=== PATIENT | male | born 1990 | race Caucasian/White ===

== ENCOUNTER 2021-03-06 21:28 | Emergency (ER) | payer SELFPAY ==
[~2021-03-06] VITALS: Ht 190 cm; Wt 100.0 kg
[2021-03-06] MEDS ORDERED: FAMOTIDINE 20MG/2ML IV (PEPCID) IV STA (22:32)
[2021-03-06] MEDS ORDERED: LACTATED RINGERS 1,000 ML IV STA (22:32)
[2021-03-06 22:42] LABS: BASOPHILS % (AUTO) 0 % (0-10); EOSINOPHILS # (AUTO) 0.1 10^3/uL (0.0-0.3); EOSINOPHILS % (AUTO) 1 % (0-10); HEMATOCRIT 44 % (40-54); HEMOGLOBIN 15.3 g/dL (13.3-17.7); LYMPHOCYTES # (AUTO) 0.5 10^3/uL (1.0-4.0); LYMPHOCYTES % (AUTO) 5 % (12-44); MEAN CORPUSCULAR HEMOGLOBIN 30 pg (25-34); MEAN CORPUSCULAR HGB CONC 35 g/dL (32-36); MEAN CORPUSCULAR VOLUME 88 fL (80-99); MEAN PLATELET VOLUME 10.8 fL (9.0-12.2); MONOCYTES # (AUTO) 0.5 10^3/uL (0.0-1.0); MONOCYTES % (AUTO) 5 % (0-12); NEUTROPHILS # (AUTO) 8.1 10^3/uL (1.8-7.8); NEUTROPHILS % (AUTO) 89 % (42-75); PLATELET COUNT 223 10^3/uL (130-400); WHITE BLOOD COUNT 9.2 10^3/uL (4.3-11.0)
[2021-03-06] MEDS ORDERED: ONDANSETRON 4 MG/2 ML (SDV) Z0FRAN IVP ONE (22:45)
[2021-03-06 22:48] LABS: ALBUMIN 4.7 GM/DL (3.2-4.5)
[2021-03-06 22:49] LABS: CHLORIDE 107 MMOL/L (98-107); POTASSIUM 3.7 MMOL/L (3.6-5.0); SODIUM 138 MMOL/L (135-145)
[2021-03-06 22:50] LABS: CALCIUM 9.2 MG/DL (8.5-10.1)
[2021-03-06 22:51] LABS: GLUCOSE 94 MG/DL (70-105); TOTAL PROTEIN 7.5 GM/DL (6.4-8.2)
[2021-03-06 22:52] LABS: CARBON DIOXIDE 18 MMOL/L (21-32)
[2021-03-06 22:53] LABS: BILIRUBIN,TOTAL 1.4 MG/DL (0.1-1.0)
[2021-03-06 22:54] LABS: ALKALINE PHOSPHATASE 76 U/L (40-136)
[2021-03-06 22:55] LABS: CREATININE SERUM 0.87 MG/DL (0.60-1.30); GFR ESTIMATED > 60
[2021-03-06 22:56] LABS: BUN/CREATININE RATIO 20
[2021-03-06 22:57] LABS: ALANINE AMINOTRANSFERASE 37 U/L (0-55)
--- NOTE | 2021-03-06 23:05 | ED GI ---
General Chief Complaint: Abdominal/GI Problems Stated Complaint: VOMMITTING, DIARRHEA, STOMACH PAIN Nursing Triage Note: PT PRESENTS TO THE ED C/O TWO DAYS OF NVD. DENIES FEVER OR CHILLS. STOOLS HAVE BEEN LIQUID ALL DAY TODAY. VERBALIZES ABD. CRAMPS. Source of Information: Patient Exam Limitations: No Limitations History of Present Illness Date Seen by Provider: Mar 06, 2021 Time Seen by Provider: 22:45 Initial Comments Here with report of nausea, vomiting and diarrhea over the last couple days. Thinks he may have got overheated. Denies contact with COVID-19. Denies Covid vaccination. Try to drink a whole bunch of fluid quickly tonight and vomited that up. Overall he is feeling better currently. Denies blood in his vomit or stool. Timing/Duration: 1-2 Days, Intermittent, Other (Better now) Severity/Quality: Cramping Location: Generalized Abdomen Modifying Factors: Improves With Defecating; Worsens With Eating Associated Symptoms: No Back Pain, No Chest Pain; Nausea/Vomiting; No Weakness Allergies and Home Medications Allergies Coded Allergies: No Known Drug Allergies (Unverified , 03/06/21) Patient Home Medication List Home Medication List Reviewed: Yes Review of Systems Review of Systems Constitutional: No chills, No fever EENTM: No Nose Pain, No Throat Pain Respiratory: Denies Cough, Denies Shortness of Air Cardiovascular: No Symptoms Reported Gastrointestinal: See HPI Genitourinary: No Symptoms Reported Musculoskeletal: no symptoms reported All Other Systems Reviewed Negative Unless Noted: Yes Past Kwezlsg-Rteobc-Ubsyzo Hx Patient Social History Tobacco Use?: Yes Smoking Status: Current Everyday Smoker Substance use?: No Alcohol Use?: No Immunizations Up To Date Influenza Vaccine Up-to-Date: No; Not Current Past Medical History Surgeries: Yes Orthopedic Respiratory: No Cardiac: No Neurological: No Family Medical History Reviewed and Corrections made Physical Exam Vital Signs Vital Signs - First Documented 03/06/21 22:11 Temp 36.0 Pulse 75 Resp 18 B/P (MAP) 133/100 (111) Pulse Ox 99 O2 Delivery Room Air Capillary Refill : Less Than 3 Seconds Height/Weight/BMI Height: '" Weight: lbs. oz. kg; 27.00 BMI Method: General Appearance: WD/WN, no apparent distress Neck: full range of motion, supple Respiratory: lungs clear, normal breath sounds Cardiovascular: regular rate, rhythm, no murmur Gastrointestinal: normal bowel sounds, non tender, soft Extremities: non-tender, normal inspection Back: normal inspection, no CVA tenderness, no vertebral tenderness Neurologic/Psychiatric: alert, oriented x 3 Skin: normal color, warm/dry Progress/Results/Core Measures Results/Orders Lab Results Laboratory Tests Test 03/06/21 22:24 Range/Units Sodium Level 138 135-145 MMOL/L Potassium Level 3.7 3.6-5.0 MMOL/L Chloride Level 107 98-107 MMOL/L Carbon Dioxide Level 18 L 21-32 MMOL/L Anion Gap 13 5-14 MMOL/L Blood Urea Nitrogen 17 7-18 MG/DL Creatinine 0.87 0.60-1.30 MG/DL Estimat Glomerular Filtration Rate > 60 BUN/Creatinine Ratio 20 Glucose Level 94 70-105 MG/DL Calcium Level 9.2 8.5-10.1 MG/DL Corrected Calcium 8.5-10.1 MG/DL Total Bilirubin 1.4 H 0.1-1.0 MG/DL Aspartate Amino Transf (AST/SGOT) 29 5-34 U/L Alanine Aminotransferase (ALT/SGPT) 37 0-55 U/L Alkaline Phosphatase 76 40-136 U/L C-Reactive Protein High Sensitivity 0.92 H 0.00-0.50 MG/DL Total Protein 7.5 6.4-8.2 GM/DL Albumin 4.7 H 3.2-4.5 GM/DL My Orders Orders - SILVIA CHAVARRIA MD Cbc With Automated Diff (03/06/21 22:32) Comprehensive Metabolic Panel (03/06/21 22:32) Hs C Reactive Protein (03/06/21 22:32) Drug Screen Stat (Urine) (03/06/21 22:32) Ua Culture If Indicated (03/06/21 22:32) Ondansetron Injection (Zofran Injectio (03/06/21 22:45) Lactated Ringers (Lr 1000 Ml Iv Solution (03/06/21 22:32) Famotidine Injection (Pepcid Injection) (03/06/21 22:32) Ed Iv/Invasive Line Start (03/06/21 22:32) Covid 19 Inhouse Test (03/06/21 22:32) Influenza A And B By Pcr (03/06/21 22:32) Medications Given in ED Current Medications Medications Dose Ordered Sig/Emerson Route Start Time Stop Time Status Last Admin Dose Admin Ondansetron HCl 4 mg ONCE ONCE IVP 03/06/21 22:45 03/06/21 22:46 DC 03/06/21 22:46 4 MG Vital Signs/I&O 03/06/21 22:11 Temp 36.0 Pulse 75 Resp 18 B/P (MAP) 133/100 (111) Pulse Ox 99 O2 Delivery Room Air Blood Pressure Mean: 111 Progress Progress Note : Progress Note Seen and evaluated. Fluids and meds ordered which patient refused. Labs ordered. COVID-19 test ordered which patient refused. Overall he states he is feeling better and would just like to go home and thinks he is overheated. Preliminary labs look okay. I did discuss with him about slow rehydration which he verbalized understanding. He states he will come back if anything worsens. At this point, we will discharge him home. Discharged home with return precautions. Patient verbalized understanding of instructions and agreement with plan. Departure Impression Primary Impression: Nausea and vomiting Qualified Codes: R11.2 - Nausea with vomiting, unspecified Additional Impression: Diarrhea Qualified Codes: R19.7 - Diarrhea, unspecified Disposition: 01 HOME, SELF-CARE Condition: Stable Departure-Patient Inst. Decision time for Depature: 23:04 Patient Instructions: Dehydration, Adult (DC), Diarrhea in Adolescents and Adults, Heat Illness ED, Nausea and Vomiting, Adult Add. Discharge Instructions: All discharge instructions reviewed with patient and/or family. Voiced understanding. You should rehydrate by taking small sips frequently of watered-down Gatorade or similar type fluid. You may resume light diet when you are tolerating fluids well. You may then advance as tolerated to your normal diet. You should avoid heat for the next day or 2 and get some rest. Return for worse pain, weakness, swelling, vomiting, diarrhea, blood in your vomit or stool or other concerns as needed. You did have an incomplete work-up and so information is based on the limited data that we were able to obtain. Please return for any concerns. SILVIA CHAVARRIA MD Mar 06, 2021 23:05
[2021-03-06 23:21] VITALS: BP 128/91
[2021-03-07 00:22] LABS: BAND NEUTROPHILS 2 %; LYMPHOCYTES % (MANUAL) 7 %; MONOCYTES % (MANUAL) 2 %; NEUTROPHILS % (MANUAL) 89 %
== END 2021-03-06 23:20 | disposition home or self-care (01) ==
LOC: ER 21:32
DX: R11.2 Nausea with vomiting, unspecified (principal); R19.7 Diarrhea, unspecified; F17.200 Nicotine dependence, unspecified, uncomplicated
CPT/HCPCS: 36415; 80053; 85007; 85027; 86141